=== PATIENT | female | born 1985 ===

== ENCOUNTER 2025-07-12 07:00 | Day surgery (SDC) | payer OTHER ==
[2025-07-05 13:05] VITALS: BP 131/82
[~2025-07-12] VITALS: Ht 162.6 cm; Wt 53.5 kg
[2025-07-12] MEDS ORDERED: CEFTRIAXONE SODIUM 2,000 MG VIAL ONE (07:49)
[2025-07-12] MEDS ORDERED: METRONIDAZOLE/SODIUM CHLORIDE 500 MG/100 ML PIGGYBACK IV ONE (07:50)
[2025-07-12] MEDS ORDERED: HEMOSTATIC MATRIX 1 KIT KIT TOP ONE (09:16)
[2025-07-12] MEDS ORDERED: DIBUCAINE 30 GM TUBE ONE (09:16)
[2025-07-12] MEDS ORDERED: BUPIVACAINE HCL/MPF 0.5% 30ML VIAL ONE (09:17)
[2025-07-12] MEDS ORDERED: LIDOCAINE HCL 1%/EPINEPHRINE 20ML VIAL IJ ONE (09:17)
[2025-07-12] MEDS ORDERED: POVIDONE-IODINE 118 ML BOTT TOP ONE (09:17)
[2025-07-12] MEDS ORDERED: OXYCODONE HCL5 MG PO (10:24)
[2025-07-12] MEDS ORDERED: TAMSULOSIN HCL 0.4 MG CAP PO NR (12:00)
[2025-07-12] MEDS ORDERED: TAMSULOSIN HCL 0.4 MG CAP PO ONE (13:01)
[2025-07-12] MEDS ORDERED: KETOROLAC TROMETHAMINE 30 MG VIAL ONE (13:42)
== END 2025-07-12 15:00 | disposition home or self-care (01) ==
LOC: CIR.AMB 07:00 → O/R 08:00 → CIR.AMB 08:00
PROVIDERS: ATTEND Surgery
DX: K64.4 Residual hemorrhoidal skin tags (principal); K64.8 Other hemorrhoids; K62.5 Hemorrhage of anus and rectum